=== PATIENT | female | born 1985 | race Two or more races ===

== ENCOUNTER 2019-12-21 08:21 | Emergency (ER) | payer MEDICAID ==
[~2019-12-21] VITALS: Ht 167.6 cm; Wt 52.0 kg
[2019-12-21 08:26] VITALS: BP 104/31
== END 2019-12-21 09:36 | disposition home or self-care (01) ==
LOC: ER 08:21
DX: M54.6 Pain in thoracic spine (principal); V43.52XA Car driver injured in collision with other type car in traffic accident, initial encounter; Y93.89 Activity, other specified; Y92.488 Other paved roadways as the place of occurrence of the external cause
CPT/HCPCS: 99282

== ENCOUNTER 2019-12-30 20:32 | Emergency (ER) | payer MEDICAID ==
[~2019-12-30] VITALS: Ht 175.3 cm; Wt 51.0 kg
[2019-12-30 20:44] VITALS: BP 111/65
== END 2019-12-30 23:33 | disposition home or self-care (01) ==
LOC: ER 20:44
DX: M79.18 Myalgia, other site (principal); V49.49XA Driver injured in collision with other motor vehicles in traffic accident, initial encounter; Y93.89 Activity, other specified; Y92.89 Other specified places as the place of occurrence of the external cause; Y99.8 Other external cause status
CPT/HCPCS: 99283